=== PATIENT | male | born 1980 | race Caucasian/White ===

== ENCOUNTER 2017-12-15 21:11 | Emergency (ER) | payer OTHER ==
[~2017-12-15] VITALS: Ht 188 cm; Wt 91.7 kg
[2017-12-15 21:33] VITALS: BP 150/85; PULSE 85; RESP 18; TEMP 98; O2SAT 100
--- NOTE | 2017-12-15 21:35 | PD ---
HPI Chief Complaint: Chest Pain Time Seen by Provider: 21:20 Travel History International Travel<30 days: No Contact w/Intl Traveler<30days: No Traveled to known affect area: No History of Present Illness HPI The patient is a 37-year-old male with no known history of heart disease who complains of a squeezing, occasionally stabbing chest pain in the left anterior chest for 3 days. He denies any nausea, shortness of breath, diaphoresis or radiation of the pain. The pain is been constant. He does have a history of GERD and takes excessive doses of antacids for this. He is also tried Prilosec but this apparently does not work for him. He takes excessive doses of Zantac as well. His pain is a 4/10. [facility] Social History Tobacco Use: No Allergies-Medications (Allergen,Severity, Reaction): Coded Allergies: No Known Allergies (Verified Allergy, Unknown, 12/15/17) Reported Meds & Prescriptions Reported Meds & Active Scripts Active No Active Prescriptions or Reported Medications Review of Systems Except as stated in HPI: all other systems reviewed are Neg Physical Exam Narrative GENERAL: The patient is alert, oriented 3 in slight apparent distress with his chest discomfort. His vital signs SKIN: Focused skin assessment warm/dry. HEAD: Atraumatic. Normocephalic. EYES: Pupils equal and round. No scleral icterus. No injection or drainage. ENT: No nasal bleeding or discharge. Mucous membranes pink and moist. NECK: Trachea midline. No JVD. CARDIOVASCULAR: Regular rate and rhythm. No murmur appreciated. RESPIRATORY: No accessory muscle use. Clear to auscultation. Breath sounds equal bilaterally. No chest wall tenderness is present. GASTROINTESTINAL: Abdomen soft, non-tender, nondistended. Hepatic and splenic margins not palpable. No guarding or rebound is present. I cannot reproduce the patient's pain by pressing on the abdominal wall. MUSCULOSKELETAL: No obvious deformities. No clubbing. No cyanosis. No edema. NEUROLOGICAL: Awake and alert. No obvious cranial nerve deficits. Motor grossly within normal limits. Normal speech. PSYCHIATRIC: Appropriate mood and affect; insight and judgment normal. Data Data Last Documented VS Vital Signs Date Time Temp Pulse Resp B/P (MAP) Pulse Ox O2 Delivery O2 Flow Rate FiO2 12/15/17 23:13 74 18 119/63 (81) 99 Room Air 12/15/17 21:33 98.0 Orders Orders Electrocardiogram (12/15/17 21:38) Basic Metabolic Panel (Bmp) (12/15/17 21:38) Ckmb (Isoenzyme) Profile (12/15/17 21:38) Complete Blood Count With Diff (12/15/17 21:38) Troponin I (12/15/17 21:38) Ecg Monitoring (12/15/17 21:38) Iv Access Insert/Monitor (12/15/17 21:38) Oximetry (12/15/17 21:38) Oxygen Administration (12/15/17 21:38) Sodium Chloride 0.9% Flush (Ns Flush) (12/15/17 21:45) Chest, Pa & Lat (12/15/17 21:38) CKMB (12/15/17 22:00) CKMB% (12/15/17 22:00) Labs Laboratory Tests Test 12/15/17 22:00 White Blood Count 7.6 TH/MM3 Red Blood Count 4.71 MIL/MM3 Hemoglobin 12.7 GM/DL Hematocrit 37.8 % Mean Corpuscular Volume 80.3 FL Mean Corpuscular Hemoglobin 26.9 PG Mean Corpuscular Hemoglobin Concent 33.5 % Red Cell Distribution Width 12.9 % Platelet Count 220 TH/MM3 Mean Platelet Volume 8.1 FL Neutrophils (%) (Auto) 74.0 % Lymphocytes (%) (Auto) 19.1 % Monocytes (%) (Auto) 5.8 % Eosinophils (%) (Auto) 0.9 % Basophils (%) (Auto) 0.2 % Neutrophils # (Auto) 5.6 TH/MM3 Lymphocytes # (Auto) 1.5 TH/MM3 Monocytes # (Auto) 0.4 TH/MM3 Eosinophils # (Auto) 0.1 TH/MM3 Basophils # (Auto) 0.0 TH/MM3 CBC Comment DIFF FINAL Differential Comment Blood Urea Nitrogen 25 MG/DL Creatinine 1.40 MG/DL Random Glucose 75 MG/DL Calcium Level 8.9 MG/DL Sodium Level 141 MEQ/L Potassium Level 3.9 MEQ/L Chloride Level 108 MEQ/L Carbon Dioxide Level 25.8 MEQ/L Anion Gap 7 MEQ/L Estimat Glomerular Filtration Rate 57 ML/MIN Total Creatine Kinase 120 U/L Creatine Kinase MB 0.5 NG/ML Troponin I LESS THAN 0.02 NG/ML MDM Medical Decision Making Medical Screen Exam Complete: Yes Emergency Medical Condition: Yes Medical Record Reviewed: Yes Interpretation(s) The BUN is 25 and the creatinine is 1.4 with a GFR of 57 but the basic metabolic profile is otherwise normal. The cardiac enzymes are normal. The CBC is normal except for hemoglobin of 12.7 and hematocrit of 37.8. The chest x -ray shows no acute cardiopulmonary disease. The EKG shows sinus rhythm with sinus arrhythmia and no acute ST elevation or depression. Differential Diagnosis Chest wall pain, pleuritic pain, acute coronary syndrome-unlikely, esophageal pain, gastrointestinal pain Narrative Course There is no evidence of cardiac disease tonight. It is likely his pain is related to his gastroesophageal reflux disease. He is taking toxic levels of Zantac and large amounts of antacid. Plan: I will write the patient Protonix to see if this works better for him. He should follow-up with a hydraulic jack operator as soon as possible. Diagnosis Primary Impression: Atypical chest pain Additional Impression: Gastroesophageal reflux disease Additional Instructions: Elevate the head of your bed and do not take Zantac more than 1 tablet twice daily. Follow-up with a hydraulic jack operator. The Protonix is 40 mg once daily. Med/Other Pt SpecificInfo: Prescription(s) given Scripts Ranitidine (Zantac) 150 Mg Tab 150 MG PO BID for Reduce Stomach Acid, #60 TAB 0 Refills Prov: Carl Mcfarlane MD 12/15/17 Pantoprazole (Protonix) 40 Mg Tab 40 MG PO DAILY for Reflux, #30 TAB 0 Refills Prov: Carl Mcfarlane MD 12/15/17 Disposition: 01 DISCHARGE HOME Condition: Stable Carl Mcfarlane MD Dec 15, 2017 21:35
[2017-12-15 21:40] VITALS: O2SAT 100
[2017-12-15] MEDS ORDERED: SODIUM CHLORIDE 0.9% FLUSH 10 ML FLUSH IVF PRN (21:45)
[2017-12-15 22:16] LABS: AUTOMATED NEUTROPHIL # 5.6 TH/MM3 (1.8-7.7); BASOPHIL % 0.2 % (0.0-2.0); EOSINOPHIL # 0.1 TH/MM3 (0-0.4); EOSINOPHIL % 0.9 % (0.0-4.0); HEMATOCRIT 37.8 % (39.0-51.0); HEMOGLOBIN 12.7 GM/DL (13.0-17.0); LYMPH % 19.1 % (9.0-44.0); LYMPHOCYTE # 1.5 TH/MM3 (1.0-4.8); MEAN CELL VOLUME 80.3 FL (80.0-100.0); MEAN CORPUSCULAR HEMOGLOBIN 26.9 PG (27.0-34.0); MEAN CORPUSCULAR HGB CONC 33.5 % (32.0-36.0); MEAN PLATELET VOLUME 8.1 FL (7.0-11.0); MONO % 5.8 % (0.0-8.0); MONOCYTE # 0.4 TH/MM3 (0-0.9); PLATELET COUNT 220 TH/MM3 (150-450); RED BLOOD COUNT 4.71 MIL/MM3 (4.50-5.90); RED CELL DISTRIBUTION WIDTH 12.9 % (11.6-17.2); WHITE BLOOD COUNT 7.6 TH/MM3 (4.0-11.0)
--- NOTE | 2017-12-15 22:20 | RADRPT ---
EXAM DATE/TIME: 12/15/2017 21:42 [facility] COMPARISON: No previous studies available for comparison. INDICATIONS : Chest pain. MEDICAL HISTORY : None. SURGICAL HISTORY : None. ENCOUNTER: Initial ACUITY: 4 - 6 days PAIN SCORE: 4/10 LOCATION: Left chest FINDINGS: PA and lateral views of the chest demonstrate the lungs to be symmetrically aerated without evidence of mass, infiltrate or effusion. The cardiomediastinal contours are unremarkable. Osseous structure s are intact. CONCLUSION: No evidence of acute cardiopulmonary disease. Luis E Christy MD on December 15, 2017 at 22:18 Board Certified Radiologist. This report was verified electronically.
[2017-12-15 22:22] LABS: CHLORIDE 108 MEQ/L (98-107); SODIUM (NA) 141 MEQ/L (136-145)
[2017-12-15 22:24] LABS: CALCIUM 8.9 MG/DL (8.5-10.1)
[2017-12-15 22:25] LABS: BICARBONATE 25.8 MEQ/L (21.0-32.0); BLOOD UREA NITROGEN 25 MG/DL (7-18); GLUCOSE,RANDOM 75 MG/DL (74-106)
[2017-12-15 22:29] LABS: GLOMERULAR FILTRATION RATE 57 ML/MIN (>89)
[2017-12-15 22:33] LABS: TROPONIN I LESS THAN 0.02 NG/ML (0.02-0.05)
[2017-12-15 23:13] VITALS: BP 119/63; PULSE 74; RESP 18; O2SAT 99
[2017-12-15] MEDS ORDERED: ZANT150T2 PO (23:47)
[2017-12-15] MEDS ORDERED: PROT40TA PO (23:47)
[2017-12-16 00:03] VITALS: BP 122/66; PULSE 74; RESP 18; O2SAT 99
--- NOTE | 2017-12-16 15:36 | EKG ---
Date Performed: 12/15/2017 Time Performed: 21:17:33 PTAGE: 37 years EKG: Sinus rhythm WITH SINUS ARRHYTHMIA NONSPECIFIC T-WAVE ABNORMALITY ABNORMAL ECG NO PREVIOUS TRACING DOCTOR: Jackelin Jauregui Interpretating Date/Time 12/16/2017 15:34:13
== END 2017-12-16 00:05 | disposition home or self-care (01) ==
LOC: PHED 21:11
DX: R07.89 Other chest pain (principal); K21.9 Gastro-esophageal reflux disease without esophagitis; R94.31 Abnormal electrocardiogram [ECG] [EKG]
CPT/HCPCS: 71046; 80048; 82550; 82552; 84484; 85025; 93005; 99285